=== PATIENT | female | born 1970 | race Caucasian/White ===

== ENCOUNTER 2016-07-22 08:52 | Day surgery (SDC) | payer MEDICAID ==
[2016-07-22] VITALS (11 sets, daily range): BP systolic 90–106; BP diastolic 47–62; PULSE 68–89; RESP 13–18; Ht 162.6 cm; Wt 75.0 kg
[~2016-07-22] VITALS: Ht 162.6 cm; Wt 75.0 kg
[2016-07-22 10:37] LABS: BASOPHILS % 0.7 % (0.0-2.0); EOSINOPHILS % 1.2 % (0.0-7.0); HEMATOCRIT 29.6 % (37.0-47.0); HEMOGLOBIN 10.1 g/dl (12.0-16.0); LYMPHOCYTES # 0.8 10^3/ul (0.8-2.9); LYMPHOCYTES % 26.6 % (15.0-51.0); MEAN CORPUSCULAR HEMOGLOBIN 32.3 pg (29.0-33.0); MEAN CORPUSCULAR VOLUME 94.8 fl (82.0-101.0); MONOCYTE # 0.4 10^3/ul (0.3-0.9); MONOCYTES % 11.6 % (0.0-11.0); NEUTROPHIL # 1.9 10^3/ul (1.6-7.5); NEUTROPHILS % 59.9 % (39.0-77.0); PLATELET COUNT 274 10^3/UL (140-440); RED BLOOD COUNT 3.12 10^6/ul (4.20-5.40); RED CELL DISTRIBUTION WIDTH 14.9 % (11.5-14.5); UNCORRECTED WBC 3.1 10^3/ul (4.8-10.8); WHITE BLOOD COUNT 3.1 10^3/ul (4.8-10.8)
[2016-07-22 10:50] LABS: CONDITION 1; LH ANALYZER COMMENTS 1
[2016-07-22 10:52] LABS: CALCIUM 9.1 mg/dl (8.4-10.2); CREATININE 0.45 mg/dl (0.44-1.00); POTASSIUM 3.9 mmol/L (3.5-5.1)
[2016-07-22 10:59] LABS: INR 0.94; PROTIME 12.6 Sec (12.2-14.2)
[2016-07-22 11:08] LABS: PARTIAL THROMBOPLASTIN TIME 26.9 Sec (25.0-35.0)
[2016-07-22] MEDS ORDERED: MIDAZOLAM 1 MG/ML 2 ML INJ ONE (13:02)
[2016-07-22] MEDS ORDERED: FENTAnyl 50 MCG/ML VIAL ONE (13:02)
[2016-07-22] MEDS ORDERED: PROPOFOL 20 ML ONE (13:02)
[2016-07-22] MEDS ORDERED: CEFAZOLIN 1 GM INJ ONE (13:02)
[2016-07-22] MEDS ORDERED: KETOROLAC 30 MG INJ ONE (13:25)
[2016-07-22] MEDS ORDERED: ONDANSETRON 4 MG INJ ONE (13:25)
[2016-07-22] MEDS ORDERED: METOCLOPRAMIDE 10 MG INJ ONE (13:25)
[2016-07-22] MEDS ORDERED: DEXAMETHASONE 4 MG/ML 1 ML INJ ONE (13:25)
[2016-07-22] MEDS ORDERED: DIPHENHYDRAMINE 50 MG INJ IV PRN (13:30)
[2016-07-22] MEDS ORDERED: ONDANSETRON 4 MG INJ IV PRN (13:30)
[2016-07-22] MEDS ORDERED: HYDROmorphONE (0.2 MG/ML) 10ML SYG IV PRN ×3 (13:30)
[2016-07-22] MEDS ORDERED: morphine (1 MG/ML) 10ML SYRINGE IV PRN ×3 (13:30)
[2016-07-22] MEDS ORDERED: MEPERIDINE 25 MG INJ IV PRN (13:30)
--- NOTE | 2016-07-22 15:57 | OPR ---
DATE OF OPERATION: 07/22/2016 PREOPERATIVE DIAGNOSIS: History of left breast cancer, need for left nipple biopsy. POSTOPERATIVE DIAGNOSIS: History of left breast cancer, need for left nipple biopsy. PROCEDURE: Left nipple biopsy. ANESTHESIA: General. ANESTHESIOLOGIST: SURGEON: Pollo Lucio MD DIRECT SUPPORT PROFESSIONAL: Dr. Ortega. INDICATIONS FOR PROCEDURE: The patient is a 45-year-old female who is undergoing adjuvant chemother apy for a left breast cancer. She presented with a somewhat ulcerated left nipple, worrisome for po ssible residual or recurrent disease. She was counseled as to the need for biopsy. She consented a nd was scheduled for surgery. DESCRIPTION OF PROCEDURE: The patient was brought to the operating theater and placed under general anesthesia. The left breast was prepped and draped in the usual sterile fashion. A punch biopsy w as used to obtain approximately a 2-mm cylindrical biopsy of the nipple and subcutaneous tissue. Th e specimen was removed and sent for permanent pathologic analysis. Minimal bleeding was controlled with cautery and the small incision was then closed with 3-0 chromic sutures in simple interrupted f ashion. The patient tolerated the procedure well. Total blood loss was 2 mL. There were no compli cations and the patient was transported in stable condition to the recovery room. Dictated By: POLLO LUCAS/HUSSAIN Conf#: [id number] DID#: [id number]
== END 2016-07-22 15:50 | disposition home or self-care (01) ==
LOC: SDS 08:52
PROVIDERS: ATTEND Surgery Surgical Oncology
DX: C50.012 Malignant neoplasm of nipple and areola, left female breast (principal)
CPT/HCPCS: 19101; 80048; 84703; 85025; 85610; 85730; 88305; J0690; J1100; J1885; J2250; J2405; J2765; J3010; Z7512; Z7610

== ENCOUNTER 2016-09-19 07:39 | Day surgery (SDC) | payer MEDICAID ==
[2016-09-16 11:48] VITALS: Ht 162.6 cm; Wt 75.0 kg
[2016-09-19] VITALS (20 sets, daily range): BP systolic 103–134; BP diastolic 56–72; PULSE 64–115; RESP 16–22
[~2016-09-19] VITALS: Ht 162.6 cm; Wt 75.0 kg
[~2016-09-19 07:39] MED LIST: CEFAZOLIN 2 GM/50 ML (PMX) 50 ML IVPB ONE; SOD CHLORIDE 0.9% 1,000 ML IV ONE
[2016-09-19 08:48] LABS: ADD SCAN DIFF NO
[2016-09-19 08:50] LABS: BASOPHILS % 0.7 % (0.0-2.0); EOSINOPHILS # 0.3 10^3/ul (0.0-0.5); EOSINOPHILS % 6.2 % (0.0-7.0); HEMATOCRIT 34.7 % (37.0-47.0); HEMOGLOBIN 11.4 g/dl (12.0-16.0); LYMPHOCYTES # 1.1 10^3/ul (0.8-2.9); LYMPHOCYTES % 26.8 % (15.0-51.0); MEAN CORPUSCULAR HEMOGLOBIN 31.1 pg (29.0-33.0); MEAN CORPUSCULAR HGB CONC 32.9 g/dl (32.0-37.0); MEAN CORPUSCULAR VOLUME 94.8 fl (82.0-101.0); MEAN PLATELET VOLUME 9.8 fl (7.4-10.4); MONOCYTE # 0.5 10^3/ul (0.3-0.9); NEUTROPHIL # 2.3 10^3/ul (1.6-7.5); NEUTROPHILS % 54.1 % (39.0-77.0); PLATELET COUNT 251 10^3/UL (140-415); RED BLOOD COUNT 3.66 10^6/ul (4.20-5.40); RED CELL DISTRIBUTION WIDTH 14.5 % (11.5-14.5); WHITE BLOOD COUNT 4.2 10^3/ul (4.8-10.8)
[2016-09-19] MEDS ORDERED: FENTAnyl 50 MCG/ML VIAL ONE (09:26)
[2016-09-19] MEDS ORDERED: MIDAZOLAM 1 MG/ML 2 ML INJ ONE (09:26)
[2016-09-19 09:31] LABS: POTASSIUM 4.1 mmol/L (3.5-5.1)
[2016-09-19 09:33] LABS: CREATININE 0.51 mg/dl (0.44-1.00)
[2016-09-19 09:35] LABS: CALCIUM 8.9 mg/dl (8.4-10.2)
[2016-09-19 09:39] LABS: INR 0.9; PROTIME 12.1 Sec (12.2-14.2); PT RATIO 0.9
[2016-09-19 09:40] LABS: PARTIAL THROMBOPLASTIN TIME 25.7 Sec (25.0-35.0)
[2016-09-19] MEDS ORDERED: morphine 10 MG INJ ONE (10:04)
[2016-09-19] MEDS ORDERED: ONDANSETRON 4 MG INJ IV PRN ×2 (10:30→11:00)
[2016-09-19] MEDS ORDERED: MEPERIDINE 25 MG INJ IV PRN (10:30)
[2016-09-19] MEDS ORDERED: HYDROmorphONE (0.2 MG/ML) 10ML SYG IV PRN ×2 (10:30)
[2016-09-19] MEDS ORDERED: DIPHENHYDRAMINE 50 MG INJ IV PRN (10:30)
[2016-09-19] MEDS ORDERED: NEOSTIGMINE 3 MG/3 ML SYRINGE ONE (10:36)
[2016-09-19] MEDS ORDERED: LIDOCAINE 2% (SDV) 5 ML INJ ONE (10:36)
[2016-09-19] MEDS ORDERED: PROPOFOL 20 ML ONE (10:36)
[2016-09-19] MEDS ORDERED: GLYCOPYRROLATE 0.4 MG INJ ONE (10:36)
[2016-09-19] MEDS ORDERED: ROCURONIUM 50 MG INJ ONE (10:36)
[2016-09-19] MEDS ORDERED: ONDANSETRON 4 MG INJ ONE (10:41)
[2016-09-19] MEDS ORDERED: ACETAMINOPHEN 1000MG/100ML IV 100 ML IVPB PRN (11:00)
[2016-09-19] MEDS: FENTAnyl 50 MCG/ML VIAL IV PRN ×3 (11:18→11:36)
[2016-09-19] MEDS ORDERED: LORAZEPAM 2 MG INJ IV PRN (12:30)
[2016-09-19] MEDS: D5W-0.45 NACL + KCL 20 MEQ 1,000 ML IV SCH ×2 (12:49→18:31)
--- NOTE | 2016-09-19 13:19 | OPR ---
DATE OF OPERATION: 09/19/2016 PREOPERATIVE DIAGNOSIS: Recurrent invasive cancer, left breast. POSTOPERATIVE DIAGNOSIS: Recurrent invasive cancer, left breast. OPERATION PERFORMED: Left modified radical mastectomy. ANESTHESIA: General. ANESTHESIOLOGIST: Fran Adams MD. SURGEON: Pollo Lucio MD ARCHITECT INTERN: Benedict Ocampo MD INDICATIONS FOR PROCEDURE: The patient is an unfortunate 45-year-old female who recently was treate d for a 1.7 cm invasive cancer of her left breast and then started on chemotherapy; however, she beg an to experience change in her nipple and she was brought back to the operating room and nipple biop sy was performed which revealed recurrent cancer consistent with Paget's disease. She was counseled as to the need for mastectomy. She consented and was scheduled for surgery. DESCRIPTION OF PROCEDURE: The patient was brought to the operating theater, placed under general an esthesia. The left breast and axillary region were prepped and draped in usual sterile fashion. An elliptical incision was made around the nipple areolar complex of the left breast, including some a dditional skin of the breast. This was carried out with 15 blade scalpel. The skin edges were then elevated using towel clips and skin flaps were created with cautery, first superiorly to the clavic le, then medially to the sternal border, inferiorly to the inframammary fold and laterally until the latissimus dorsi muscle was identified throughout its course. Mastectomy then took place from medi al to lateral. At the border of the pectoralis major muscle, the pectoralis minor muscle was identi fied and the clavipectoral fascia was incised. There was significant scar tissue from the previous axillary dissection. There are some residual enlarged lymph nodes that are also removed. The breas t and the lymph nodes were sent for permanent pathologic analysis. The wound was irrigated. Minimal bleeding was controlled with cautery. Two #10 flat Gwyn-Rossi drains were then brought through the left mid axillary line. One was cut to size and laid within th e axilla, the other was laid over the pectoralis major muscle. They were secured in place with nylo n sutures in standard fashion. The skin edges were then reapproximated using towel clamps, and the final skin approximation then took place with skin sandrita. Patient tolerated procedure well. Nancy mated blood loss was 50 mL. There were no complications and the patient was transported in stable c ondition to the recovery room. Dictated By: POLLO LUCAS/HUSSAIN Conf#: [id number] DID#: [id number]
--- NOTE | 2016-09-19 15:11 | HP ---
DATE OF ADMISSION: 09/19/2016 HISTORY OF PRESENT ILLNESS: The patient is an unfortunate 45-year-old female with history of invasive ductal carcinoma of the right breast with lymph node biopsy positive for invasive cancer . The patient underwent neoadjuvant chemotherapy. Patient also underwent a left breast partial mas tectomy and axillary dissection in January 2016. The patient was followed with Dr. Lucio in general surgery consultation and due to advanced cancer, patient was brought to the hospital and underwent l eft modified radical mastectomy of the left breast. Postoperatively, patient experienced significan t pain and also felt very anxious. The patient will be admitted for further evaluation and manageme nt to medical/surgical floor. PAST SURGICAL HISTORY: Per HPI. FAMILY HISTORY: Negative for any breast or ovarian cancer. SOCIAL HISTORY: Patient lives at home with her family, patient denies any tobacco use, denies any a lcohol use, denies any illicit drug use. ALLERGIES: NO KNOWN ALLERGIES. HOME MEDICATIONS: Zofran for nausea and Tylenol for pain. REVIEW OF SYSTEMS: A 12-point review of systems negative unless what mentioned in the HPI. PHYSICAL ASSESSMENT: GENERAL: Well-developed, well-nourished female currently lethargic, but easily arousable. Patient looks anxious when awake. VITAL SIGNS: Temperature is 97.7, pulse is 76, blood pressure 124/70, respiratory rate 70, oxygen s aturation 100% on 2 liters nasal cannula. HEENT: Head is atraumatic. Pupils are reactive to light and accommodation. Oral mucosa is pink an d moist. NECK: Supple. . CHEST: Lungs clear bilaterally, no rhonchi, rales, wheezes noted. PAST SURGICAL HISTORY: The patient is status post surgery with chest dressing and left axillary CHLOÉ drains. CARDIOVASCULAR: S1, S2. No murmurs, gallops, clicks, rubs noted. ABDOMEN: Protuberant, soft, nondistended, nontender. Bowel sounds present. EXTREMITIES: There is no edema, clubbing, cyanosis. Pulses equal bilaterally 2+. SKIN: There is no rash, petechiae noted. NEUROLOGIC: Patient is lethargic but easily arousable, alert and oriented x3. LABORATORY DATA: On admission, CBC: White blood cells 4.2, hemoglobin 11.4, hematocrit 34.7, plate lets 251. Chemistry: Sodium 140, potassium 4.1, chloride 106, carbon dioxide 27, anion gap 11, BUN is 11, creatinine 0.51, glucose 98, calcium 8.9. PT is 12.1, INR 0.9, APTT 25.7. ASSESSMENT AND PLAN: Invasive cancer of the left breast status post left modified radical mastectom y. We will continue Tylenol and morphine p.r.n. for pain and Zofran p.r.n. for nausea. Continue IV fluids. Monitor electrolytes. Continue incentive spirometry q.1h. if patient is awake. She recei dorys perioperative antibiotics. Continue sequential compression device for deep venous thrombosis pr ophylaxis. Further recommendations based on clinical course. Plan of care discussed with Dr. Sincere valdivia. Dictated By: DEMETRIO NIELSON QUARTER [employer]ING SMOOTHER for [employer] MD SR/NTS Conf#: [id number] DID#: [id number]
[2016-09-19] MEDS: morphine 2 MG INJ IV PRN (19:50)
[2016-09-20] MEDS: D5W-0.45 NACL + KCL 20 MEQ 1,000 ML IV SCH ×3 (00:13→18:01)
[2016-09-20] MEDS: morphine 2 MG INJ IV PRN (01:38)
[2016-09-20] MEDS ORDERED: ACETAMINOPHEN 325 MG TAB PO PRN (06:00)
[2016-09-20 07:47] VITALS: BP 102/55; RESP 20
[2016-09-20 07:56] LABS: ADD SCAN DIFF NO
[2016-09-20 08:13] LABS: POTASSIUM 4.1 mmol/L (3.5-5.1)
[2016-09-20 08:14] LABS: BASOPHILS % 0.3 % (0.0-2.0); EOSINOPHILS # 0.1 10^3/ul (0.0-0.5); HEMATOCRIT 30.4 % (37.0-47.0); HEMOGLOBIN 10.1 g/dl (12.0-16.0); LYMPHOCYTES # 0.8 10^3/ul (0.8-2.9); LYMPHOCYTES % 13.6 % (15.0-51.0); MEAN CORPUSCULAR HEMOGLOBIN 31.1 pg (29.0-33.0); MEAN CORPUSCULAR HGB CONC 33.2 g/dl (32.0-37.0); MEAN CORPUSCULAR VOLUME 93.5 fl (82.0-101.0); MEAN PLATELET VOLUME 10.4 fl (7.4-10.4); MONOCYTE # 0.4 10^3/ul (0.3-0.9); MONOCYTES % 6.8 % (0.0-11.0); NEUTROPHIL # 4.7 10^3/ul (1.6-7.5); NEUTROPHILS % 78.1 % (39.0-77.0); PLATELET COUNT 247 10^3/UL (140-415); RED BLOOD COUNT 3.25 10^6/ul (4.20-5.40); RED CELL DISTRIBUTION WIDTH 14.5 % (11.5-14.5)
[2016-09-20 08:16] LABS: CREATININE 0.49 mg/dl (0.44-1.00)
[2016-09-20 08:17] LABS: CALCIUM 8.8 mg/dl (8.4-10.2)
[2016-09-20] MEDS ORDERED: HYDR-906 PO (14:35)
--- NOTE | 2016-09-20 21:01 | PN ---
DATE: SUBJECTIVE: Postop day #1 status post left modified radical mastectomy for cancer of the breast. N o complaint. OBJECTIVE: VITAL SIGNS: 98.7, 79, 20, blood pressure 102/55, saturation 98% on room air. LABORATORY DATA: WBC 6000, hemoglobin 10.1, hematocrit 30.4. BUN, creatinine, sodium, potassium no rmal. CHEST: The patient has 2 Gwyn-Grant. Total drain 80 mL since morning. Serosanguineous fluid. She moves her left upper extremity. ASSESSMENT: Postoperative day #1 status post modified radical mastectomy. Gwyn-Rossi draining s erosanguineous. The patient has no problems ____ left shoulder and left upper extremity. PLAN: The patient can be discharged home today. Follow up by Dr. Lucio in his office. The patient to call tomorrow and make the appointment. The nurses can teach the patient and family how to db ge the Gwyn-Rossi and how to drain it and how to record. Dictated By: ELIZABET FRENCH/HUSSAIN Conf#: [id number] DID#: [id number]
--- NOTE | 2016-09-23 05:04 | DS ---
DATE OF ADMISSION: 09/19/2016 DATE OF DISCHARGE: 09/20/2016 FINAL DIAGNOSIS: Recurrent invasive cancer of the left breast status post left modified radical mas tectomy. BRIEF HISTORY: The patient is a 45-year-old female who was recently treated for invasive cancer of the left breast and then started on chemotherapy; however, she began to experience a change in her n ipple and she was brought back to the operating room and nipple biopsy was performed which revealed recurrent cancer. The patient counseled as to the need for mastectomy and patient was brought to [facility] and underwent left modified radical mastectomy by Dr. Lucio. Postoperatively, the patien t experienced significant pain and also felt very anxious and the patient was admitted for further e valuation and management on medical surgical floor. The patient was given morphine and Tylenol for pain and some Ativan for anxiety. The patient's condition gradually improved. The patient's pain w as well controlled the next day and patient was discharged home. CONDITION ON DISCHARGE: Hemodynamically stable. ACTIVITY: As patient tolerates. DIET: Regular diet. DISCHARGE MEDICATIONS: The patient was given prescription for [place] for pain. The patient is instructed to follow up with Dr. Lucio in postoperative appointment in 5 to 7 days. Interdisciplinary plan of care was established for this patient. Plan of care was discussed with Dr Too Meneses. Dictated By: DEMETRIO NIELSON TREE MARKER for [employer] MENESES MD, SR/NTS Conf#: [id number] DID#: [id number]
== END 2016-09-20 19:45 | disposition home or self-care (01) ==
LOC: SDS 07:39 → MS2 12:15 → SDS 09-20 19:45
PROVIDERS: ATTEND Surgery Surgical Oncology
DX: C50.912 Malignant neoplasm of unspecified site of left female breast (principal); E66.9 Obesity, unspecified; Z68.28 Body mass index [BMI] 28.0-28.9, adult; C50.012 Malignant neoplasm of nipple and areola, left female breast
CPT/HCPCS: 19307; 80048; 84703; 85025; 85610; 85730; 88307; J1200; J2175; J2250; J2270; J2405; J2710; J3010; J3480; Z7512; Z7610

== ENCOUNTER 2017-07-27 09:26 | Emergency (ER) | END 2017-07-27 13:05 | disposition left against medical advice (07) ==

== ENCOUNTER 2017-08-21 13:57 | Emergency (ER) | END 2017-08-21 18:53 | disposition home or self-care (01) ==

== ENCOUNTER 2017-09-07 20:51 | Emergency (ER) | END 2017-09-08 02:49 | disposition home or self-care (01) ==